=== PATIENT | male | born 1960 | race Caucasian/White ===

== ENCOUNTER → 2018-03-20 06:52 | Outpatient (CLI) | payer OTHER, SELFPAY ==
[2018-03-20 07:33] LABS: Add Manual Diff / Slide Review NO; Basophils Percent Auto 1.1 % (0-2); Eosinophils Percent Auto 2.7 % (2-4); Hematocrit 49.3 % (41-53); Hemoglobin 16.6 g/dL (13.5-17.5); Lymphocytes Percent Auto 23.5 % (25-40); Mean Corpuscular HGB Conc 33.7 % (30-36); Mean Corpuscular Hemoglobin 33.4 PG (26-34); Mean Corpuscular Volume 99.1 fL (80-100); Monocytes Percent Auto 9.4 % (3-14); Neutrophils Absolute Auto 4200 /uL (3000-5900); Neutrophils Percent Auto 63.3 % (50-75); Platelet Count 332 X10^3/uL (150-400); Red Blood Cell Count 4.98 X10^6/uL (4.5-5.9); Red Cell Distribution Width 13.9 % (11.6-14.8); White Blood Cell Count 6.7 X10^3/uL (4.5-11.0)
[2018-03-20 07:51] LABS: Alanine Aminotransferase 20 IU/L (21-72); Albumin 4.6 g/dL (3.5-5.0); Albumin Globulin Ratio 1.3 (1.0-2.8); Alkaline Phosphatase 59 U/L (38-126); Aspartate Aminotransferase 22 IU/L (17-59); BUN Creatinine Ratio 16.7 (6-22); Blood Urea Nitrogen 15 mg/dL (9-20); Calcium 9.4 mg/dL (8.4-10.2); Carbon Dioxide 26 mmol/L (22-32); Chloride 101 mmol/L (98-107); Cholesterol 257 mg/dL (140-199); Estimated Glomerular Filt Rate > 60.0 mL/min (>60); Globulin 3.5 g/dL (1.7-4.1); Glucose 101 mg/dL (70-100); HDL Cholesterol 95 mg/dL (40-60); HEMOLYSIS < 15 (0-50); LDL Cholesterol Calculated 138 mg/dL (<100); Potassium 4.1 mmol/L (3.4-5.1); Sodium 141 mmol/L (137-145); Total Protein 8.1 g/dL (6.3-8.2); Triglycerides 119 mg/dL (35-150)
[2018-03-20 09:45] LABS: TSH w/ Reflex to FT4 1.51 uIU/mL (0.47-4.68)
== END ==
PROVIDERS: PCP Internal Medicine; Visit Provider Internal Medicine
DX: I10 Essential (primary) hypertension (principal); E78.2 Mixed hyperlipidemia
CPT/HCPCS: 36415; 80053; 80061; 84443; 85025

== ENCOUNTER → 2020-07-03 08:12 | Outpatient (CLI) | payer OTHER, SELFPAY ==
[2020-07-05 09:25] LABS: COVID19 Sendout Not Detected (Not Detect)
== END ==
PROVIDERS: Family Provider Internal Medicine; PCP Internal Medicine; Visit Provider Physician Assistant
DX: Z03.818 Encounter for observation for suspected exposure to other biological agents ruled out (principal)
CPT/HCPCS: 87635

== ENCOUNTER → 2020-08-17 11:18 | Outpatient (CLI) | payer OTHER, SELFPAY ==
[2020-08-17 12:37] LABS: COVID19 -Nasal RAPID Negative (Negative)
== END ==
PROVIDERS: Family Provider Internal Medicine; PCP Internal Medicine; Visit Provider Physician Assistant
DX: Z11.59 Encounter for screening for other viral diseases (principal)
CPT/HCPCS: 87635

== ENCOUNTER 2023-02-09 11:49 | Emergency (ER) | payer OTHER, SELFPAY ==
[2023-02-09] VITALS (10 sets, daily range): BP systolic 151–187; BP diastolic 90–105; PULSE 87–102; RESP 16; O2SAT 94–97; BMI 28.0
[2023-02-09 12:52] LABS: Add Manual Diff / Slide Review NO; Basophils Absolute Auto 100 /uL (0-100); Basophils Percent Auto 0.8 % (0-2); Eosinophils Absolute Auto 0 /uL (0-450); Eosinophils Percent Auto 0.3 % (2-4); Hematocrit 45.7 % (41-53); Hemoglobin 15.7 g/dL (13.5-17.5); Lymphocytes Absolute Auto 1600 /uL (1100-4500); Lymphocytes Percent Auto 11.3 % (25-40); Mean Corpuscular HGB Conc 34.3 % (30-36); Mean Corpuscular Hemoglobin 33.2 PG (26-34); Mean Corpuscular Volume 96.5 fL (80-100); Monocytes Absolute Auto 1400 /uL (0-900); Monocytes Percent Auto 9.7 % (3-14); Neutrophils Absolute Auto 11000 /uL (1500-7000); Neutrophils Percent Auto 77.9 % (50-75); Platelet Count 414 X10^3/uL (150-400); Red Blood Cell Count 4.74 X10^6/uL (4.5-5.9); Red Cell Distribution Width 13.8 % (11.6-14.8); White Blood Cell Count 14.2 X10^3/uL (4.5-11.0)
[2023-02-09 13:05] LABS: Alanine Aminotransferase 27 IU/L (<50); Albumin 4.4 g/dL (3.5-5.0); Albumin Globulin Ratio 1.2 (1.0-2.8); Alkaline Phosphatase 76 U/L (38-126); Aspartate Aminotransferase 25 IU/L (17-59); BUN Creatinine Ratio 16.7 (6-22); Blood Urea Nitrogen 13 mg/dL (9-20); Calcium 8.8 mg/dL (8.4-10.2); Carbon Dioxide 25 mmol/L (22-32); Chloride 101 mmol/L (98-107); Estimated Glomerular Filt Rate > 60 mL/min (>60); Globulin 3.7 g/dL (1.7-4.1); Glucose 110 mg/dL (80-110); HEMOLYSIS 40 (0-50); Lipase 44 U/L (23-300); Sodium 136 mmol/L (137-145); Total Protein 8.1 g/dL (6.3-8.2)
[2023-02-09 13:44] LABS: Bacteria Urine None Seen; Mucus Urine 1+ (Negative); RBC Urine None Seen (0-5/HPF); Squamous Epithelial Cell Urine None Seen (0-5/HPF); WBC Urine 0-1/HPF (0-5/HPF)
[2023-02-09 13:45] LABS: Culture Indicated Urine Cult Not Indicated
--- NOTE | 2023-02-09 15:44 | DI.CT.S_ITS ---
PROCEDURE: CT ABDOMEN PELVIS W CON INDICATIONS: IV contrast only/Lower abdominal pain TECHNIQUE: After the administration of intravenous contrast, axial sections acquired from the lung bases to the pubic symphysis. Coronal and sagittal reformats were performed. For radiation dose reduction, the following was used: automated exposure control, adjustment of mA and/or kV according to patient size. COMPARISON: None. FINDINGS: Image quality: Excellent. Lung bases: Unremarkable. Heart: No significant findings. ABDOMEN: Liver: Hepatic cysts. Gallbladder: Unremarkable. Biliary ducts: Unremarkable. Pancreas: Unremarkable. Spleen: Unremarkable. Adrenal Glands: Unremarkable. Kidneys and Ureters: Unremarkable. Stomach and Bowel: Sigmoid colonic diverticulitis, with associated wall thickening and pericolonic fat stranding. No evidence of perforation. A few prominent lymph nodes are present. Peritoneum: No abnormal intraperitoneal fluid. No free air. Ventral Wall: No hernias. Abdominal Nodes: No retroperitoneal or mesenteric adenopathy by size criteria. Vessels: Aorta and inferior vena cava are normal in size. PELVIS: Pelvic Organs: Unremarkable. Bladder: Unremarkable. Pelvic Nodes: No enlarged lymph nodes. Miscellaneous: No hernias are seen. Bones: Grade 1 anterolisthesis L5 on S1 secondary to pars defects. IMPRESSION: Sigmoid colonic diverticulitis, without abscess or perforation. Prominent adjacent lymph nodes are present. Recommend screening colonoscopy following resolution of symptoms to exclude underlying mass (if not performed recently). Dictated by: Yusef Cee M.D. on 02/09/2023 at 16:19 Approved by: Yusef Cee M.D. on 02/09/2023 at 16:21
--- NOTE | 2023-02-09 15:45 | ED_ITS ---
HPI - Abdominal Pain General Chief Complaint: Abdominal Pain Stated Complaint: lower ABD pain T-7/hurts to use the bathroom Time Seen by Provider: 02/09/23 15:36 Source: patient Mode of arrival: Ambulatory History of Present Illness HPI narrative: Patient here for lower abdominal pain suprapubic pain. Hurts with urination but no penile pain or testicular pain. Patient does have history of childhood testicular torsion on the left with surgical repair. He states it does not feel like this. Hurts with movement. No problems with bowel movements. Previous history of colonoscopy be but no definitive history of diverticulosis or polyps or cancer. Twin brother does have history of diverticulitis. No fever chills. No back pain. No flank pain. Related Data Home Medications Medication Instructions Recorded Confirmed ASPIRIN (#ASPIRIN) 325 mg PO 2TABS QD ##0 05/19/11 09/13/18 ibuprofen 200 mg tablet (Advil) 200 mg PO PRN ##0 05/20/11 09/13/18 MULTIVITAMIN (#ATOXIMETIN-B) 1 cap PO Q DAY ##0 12/22/11 09/13/18 Previous Rx's Medication Instructions Recorded lisinopril 40 mg tablet 40 mg PO QDAY #90 tabs 03/26/18 pravastatin 40 mg tablet 40 mg PO HS #90 tabs 03/26/18 azithromycin 250 mg tablet See Rx Instructions PO .COMPLEX #8 09/13/18 tabs prednisone 20 mg tablet See Rx Instructions PO .COMPLEX #8 09/13/18 tabs ciprofloxacin HCl 500 mg tablet 500 mg PO BID #14 tabs 02/09/23 (Cipro) metronidazole 500 mg tablet 500 mg PO TID #21 tabs 02/09/23 Allergies Allergy/AdvReac Type Severity Reaction Status Date / Time meperidine [MEPERIDINE] AdvReac Intermediate Verified 02/09/23 11:57 Review of Systems Review of Systems Narrative: GENERAL: negative chills, fatigue, malaise, fever, sweats. HEENT: negative sinus pain, ear pain, sore throat RESPIRATORY: negative dyspnea, cough CARDIOVASCULAR: negative chest pain, palpitations GASTROINTESTINAL: negative nausea, vomiting, positive abdominal pain : Positive dysuria, negative frequency, hematuria MUSCULOSKELETAL: negative muscle or bony pain SKIN: negative rash, skin lesions NEUROLOGIC: negative weakness, numbness ROS Unobtainable: All systems reviewed & are unremarkable except as noted in HPI and below Patient History Medical History Asthma (1967) Chronic back pain (2009) Essential hypertension Mixed hyperlipidemia URI (upper respiratory infection) Surgical History Anesthesia History of hand surgery (03/1988) History of testicular surgery (03/1979) Social History Smoking Status: Former smoker Smoking Status: Former smoker alcohol intake frequency: 3 or more drinks per day Alcohol type: beer and hard liquor Substance Use Type: marijuana Exam Narrative Exam Narrative: GENERAL: in no distress, not toxic not dyspneic HEAD: Normocephalic. EYES: Pupils equal round ENT: Mucous membranes moist. NECK: Trachea midline. CARDIOVASCULAR: Regular rate and rhythm without murmurs RESPIRATORY: Clear to auscultation. Breath sounds equal bilaterally. No wheezes, rales, or rhonchi. GASTROINTESTINAL: Abdomen soft, reproducible suprapubic tenderness. No peritoneal signs. No McBurney point tenderness. No left lower quadrant tenderness. No pain out of proportion to exam. EXTREMITIES: No gross deformities. BACK: No flank tenderness. NEURO: AOx4. SKIN: Warm and dry PSYCH: Not anxious, is cooperative Initial Vital Signs Initial Vital Signs: Vital Signs Pulse Rate 102 H 02/09/23 11:53 Respiratory Rate 16 02/09/23 11:53 Blood Pressure 177/105 H 02/09/23 11:53 Pulse Oximetry 94 02/09/23 11:53 Oxygen Delivery Method Room Air 02/09/23 11:53 Course Orders Ordered: Discontinued Medications Ciprofloxacin (Ciprofloxacin 250 Mg Tablet) 500 mg PO NOW ONE Stop: 02/09/23 17:09 Last Admin: 02/09/23 17:19 Dose: 500 mg Documented By: RO Sodium Chloride (Normal Saline 0.9%) 1,000 mls @ 1,000 mls/hr IV BOLUS ONE Stop: 02/09/23 16:44 Last Infusion: 02/09/23 17:44 Dose: 0 mls/hr Documented By: Admin: 02/09/23 16:13 Dose: 1,000 mls/hr Documented By: RO Ketorolac Tromethamine (Ketorolac 30 Mg/Ml Vial) 15 mg IV NOW ONE Stop: 02/09/23 17:09 Last Admin: 02/09/23 17:19 Dose: 15 mg Documented By: VICKY Metronidazole (Metronidazole 500 Mg Tablet) 500 mg PO NOW ONE Stop: 02/09/23 17:09 Last Admin: 02/09/23 17:19 Dose: 500 mg Documented By: VICKY Ondansetron HCl (Ondansetron 4 Mg/2 Ml Inj) 4 mg IV NOW PRN PRN Reason: Nausea And Vomiting Vital Signs Vital signs: Vital Signs - 8 hr 02/09/23 11:53 02/09/23 14:53 02/09/23 14:53 Pulse Rate 102 H 93 H Respiratory Rate 16 16 Blood Pressure 177/105 H 187/105 H Pulse Oximetry 94 95 Oxygen Delivery Method Room Air 02/09/23 15:00 02/09/23 15:01 02/09/23 15:01 Pulse Rate 95 H 94 H Respiratory Rate Blood Pressure 151/102 H Pulse Oximetry 96 96 Oxygen Delivery Method 02/09/23 15:30 02/09/23 15:30 02/09/23 16:00 Pulse Rate 94 H 89 Respiratory Rate Blood Pressure 174/96 H Pulse Oximetry 96 96 Oxygen Delivery Method Room Air 02/09/23 16:20 02/09/23 16:20 02/09/23 16:30 Pulse Rate 92 H Respiratory Rate Blood Pressure 162/103 H 166/90 H Pulse Oximetry 97 Oxygen Delivery Method 02/09/23 16:30 Pulse Rate 89 Respiratory Rate Blood Pressure Pulse Oximetry 97 Oxygen Delivery Method Room Air MDM - Abdominal Pain Lab Data 02/09/23 12:32 02/09/23 12:32 Labs: Lab Results 02/09/23 02/09/23 02/09/23 Range/Units 12:30 12:32 12:32 WBC 14.2 H (4.5-11.0) X10^3/uL RBC 4.74 (4.5-5.9) X10^6/uL Hgb 15.7 (13.5-17.5) g/dL Hct 45.7 (41-53) % MCV 96.5 (80-100) fL MCH 33.2 (26-34) PG MCHC 34.3 (30-36) % RDW 13.8 (11.6-14.8) % Plt Count 414 H (150-400) X10^3/uL Neut % (Auto) 77.9 H (50-75) % Lymph % (Auto) 11.3 L (25-40) % [place] % (Auto) 9.7 (3-14) % Eos % (Auto) 0.3 L (2-4) % Baso % (Auto) 0.8 (0-2) % Neut # (Auto) 39663 H (6355-5548) /uL Lymph # (Auto) 1600 (6714-7195) /uL [place] # (Auto) 1400 H (0-900) /uL Eos # (Auto) 0 (0-450) /uL Baso # (Auto) 100 (0-100) /uL Sodium 136 L (137-145) mmol/L Potassium 4.0 (3.4-5.1) mmol/L Chloride 101 (98-107) mmol/L Carbon Dioxide 25 (22-32) mmol/L BUN 13 (9-20) mg/dL Creatinine 0.78 (0.66-1.25) mg/dL Estimated GFR > 60 (>60) mL/min BUN/Creatinine Ratio 16.7 (6-22) Glucose 110 (80-110) mg/dL Calcium 8.8 (8.4-10.2) mg/dL Total Bilirubin 1.0 (0.2-1.3) mg/dL AST 25 (17-59) IU/L ALT 27 (<50) IU/L Alkaline Phosphatase 76 (38-126) U/L Total Protein 8.1 (6.3-8.2) g/dL Albumin 4.4 (3.5-5.0) g/dL Globulin 3.7 (1.7-4.1) g/dL Albumin/Globulin Ratio 1.2 (1.0-2.8) Lipase 44 (23-300) U/L Urine RBC None seen (0-5/HPF) Urine WBC 0-1/hpf (0-5/HPF) Ur Squamous Epith Cells None seen (0-5/HPF) Urine Bacteria None seen (None) Urine Mucus 1+ H (Negative) Ur Culture Indicated? Cult not indicated Point of care testing: Urine Dip Bedside Urine Glucose Negative Bedside Urine Bilirubin - Negative Bedside Urine Ketone - Negative Urine Specific [place] 1.030 Bedside Urine Occult Blood +/- Bedside Urine pH 5.5 Bedside Urine Protein + 30 Bedside Urine Urobilinogen +/- 1mg Bedside Urine Nitrite - Negative Bedside Urine Leukocytes - Negative Esterase Imaging Data CT scan - abdomen/pelvis: Radiologist's Impression: IMPRESSION: Sigmoid colonic diverticulitis, without abscess or perforation. Prominent adjacent lymph nodes are present. Recommend screening colonoscopy following resolution of symptoms to exclude underlying mass (if not performed recently). MDM Narrative Medical decision making narrative: Patient here for lower abdominal pain suprapubic pain. Hurts with urination but no penile pain or testicular pain. Patient does have history of childhood testicular torsion on the left with surgical repair. He states it does not feel like this. Hurts with movement. No problems with bowel movements. Previous history of colonoscopy be but no definitive history of diverticulosis or polyps or cancer. Twin brother does have history of diverticulitis. No fever chills. No back pain. No flank pain. After history and exam CBC CMP urinalysis CT abdomen pelvis normal saline MDM CC: Suprapubic pain. Complicating co-morbidities: None Data collected from: Patient Medical records reviewed: Reviewed notes from urgent care just prior to arrival today Differential considered: Includes but not limited to diverticulitis UTI appe ndicitis colitis kidney stone Exam documented above, pertinent findings include: Suprapubic tenderness Lab Test results independently reviewed as above. Pertinent findings: WBC 14.2 hemoglobin 15.7 hematocrit 45.7 platelets 414 sodium 136 potassium 4.0 BUN 13 creatinine 0.78 GFR greater than 60 AST 25 ALT 27 urine 0-1 WBC no RBC Independently reviewed EKG as above normal sinus rhythm rate 96 right bundle- branch block no ST elevation or depression Imaging studies independently reviewed: CT abdomen pelvis sigmoid colonic diverticulitis without abscess or perforation. Prominent lymph nodes are present. Treatments: Normal saline Cipro Flagyl Toradol Re-evaluations: Updated patient results. Pain is controlled. Return precautions reviewed with him. He will need outpatient colonoscopy. He does have a primary care provider Dr. Machuca. Referral to Dr. Gomez general surg lise given. He desires discharge home. Discussion: Appropriate for discharge home and outpatient management diverticulitis. Return precautions reviewed with him. He does have primary care resources and referral for General surgery provided. Nontoxic at discharge. He desires discharge home. Antibiotics were started here. Diagnosis: Sigmoid diverticulitis Discharge Plan Departure Patient Disposition: Home Clinical Impression: Diverticulitis Instructions: DI for Diverticulitis, DI for Diverticulosis Activity Restrictions/Additional Instructions: Please see family doctor next week and please do call Dr. Gomez, general surgery office, to schedule colonoscopy. Please do not eat foods with seeds or nuts. This can trigger diverticulitis. Return if worse if any questions or concerns. Prescription antibiotics have been sent to your pharmacy to continue for 7 days. May continue ibuprofen or Tylenol for pain. Return if worse if any questions or concerns for if increased pain or if any fever. Prescriptions: New ciprofloxacin HCl [Cipro] 500 mg tablet 500 mg PO BID Qty: 14 0RF metronidazole 500 mg tablet 500 mg PO TID Qty: 21 0RF No Action ASPIRIN (#ASPIRIN) 325 mg PO 2TABS QD Qty: 0 ibuprofen [Advil] 200 MG tablet 200 mg PO PRN Qty: 0 MULTIVITAMIN (#ATOXIMETIN-B) 1 cap PO Q DAY Qty: 0 lisinopril 40 mg tablet 40 mg PO QDAY Qty: 90 3RF pravastatin 40 mg tablet 40 mg PO HS Qty: 90 3RF azithromycin 250 mg tablet See Rx Instructions PO .COMPLEX Qty: 8 0RF Dose Instruction: TAKE 2 ON DAY 1, THEN 1 DAILY FOR 6 ADDITIONAL DAYS PO Rx Instructions: TAKE 2 ON DAY 1, THEN 1 DAILY FOR 6 ADDITIONAL DAYS PO prednisone 20 mg tablet See Rx Instructions PO .COMPLEX Qty: 8 0RF Dose Instruction: 40mg (2 tabs) daily for 4 days PO ; administer with food or milk Rx Instructions: 40mg (2 tabs) daily for 4 days PO ; administer with food or milk Referrals: Amy Gomez MD [Physician] - William Machuca MD [Primary Care Provider] - Stand Alone Forms: Patient Portal/API
[2023-02-09] MEDS: SODIUM CHLORIDE 0.9% 1,000 ML 1000 ML IV (16:13)
[2023-02-09] MEDS: metroNIDAZOLE 500 MG TABLET PO (17:19)
[2023-02-09] MEDS: KETOROLAC 30 MG/ML VIAL 15 MG IV (17:19)
[2023-02-09] MEDS: CIPROFLOXACIN 250 MG TABLET 500 MG PO (17:19)
== END 2023-02-09 17:20 | disposition home or self-care (01) ==
PROVIDERS: Emergency Provider Emergency Medicine; Family Provider Internal Medicine; PCP Internal Medicine
DX: K57.92 Diverticulitis of intestine, part unspecified, without perforation or abscess without bleeding (principal); R10.9 Unspecified abdominal pain
CPT/HCPCS: 36415; 74177; 80053; 81003; 81015; 83690; 85025; 93005; 96361; 96374; 99284; J1885; Q9967

== ENCOUNTER → 2024-06-04 15:56 | Outpatient (CLI) | payer OTHER, SELFPAY ==
[2024-06-04 16:51] LABS: Alanine Aminotransferase 23 IU/L (<50); Albumin 4.8 g/dL (3.5-5.0); Albumin Globulin Ratio 1.6 (1.0-2.8); Alkaline Phosphatase 52 U/L (38-126); Aspartate Aminotransferase 32 IU/L (17-59); BUN Creatinine Ratio 21.8 (6-22); Blood Urea Nitrogen 22 mg/dL (9-20); Calcium 9.3 mg/dL (8.4-10.2); Carbon Dioxide 24 mmol/L (22-32); Chloride 104 mmol/L (98-107); Cholesterol 221 mg/dL (140-199); Estimated Glomerular Filt Rate > 60 mL/min (>60); Glucose 99 mg/dL (80-110); HDL Cholesterol 103 mg/dL (40-60); HEMOLYSIS < 15 (0-50); LDL Cholesterol Calculated 99 mg/dL (<100); Potassium 3.8 mmol/L (3.4-5.1); Sodium 139 mmol/L (137-145); Total Protein 7.8 g/dL (6.3-8.2); Triglycerides 97 mg/dL (35-150)
[2024-06-04 17:21] LABS: Prostate Specific Antigen Scrn 0.594 ng/mL (0.1-4.0)
[2024-06-04 18:34] LABS: Hemoglobin A1C% w Est Avg Glu 5.7 % (4.0-6.0)
[2024-06-05 09:52] LABS: HIV 1 & 2 Ab/Ag 4th Gen Combo NEGATIVE (NEGATIVE); Hep C Virus Ab w/Reflex Quant NEGATIVE s/c (NEGATIVE)
== END ==
PROVIDERS: Family Provider Internal Medicine; PCP Family Medicine; Referring Provider Family Medicine; Visit Provider Family Medicine
DX: Z11.59 Encounter for screening for other viral diseases (principal); Z11.4 Encounter for screening for human immunodeficiency virus [HIV]; Z12.5 Encounter for screening for malignant neoplasm of prostate; E78.2 Mixed hyperlipidemia; I10 Essential (primary) hypertension
CPT/HCPCS: 36415; 80053; 80061; 83036; 86803; 87389; G0103

== ENCOUNTER → 2025-04-03 13:58 | Outpatient (CLI) | payer OTHER, SELFPAY ==
[2025-04-03 14:34] LABS: Hemoglobin A1C% w Est Avg Glu 5.6 % (4.0-6.0)
[2025-04-03 14:45] LABS: Alanine Aminotransferase 21 IU/L (<50); Albumin 4.5 g/dL (3.5-5.0); Albumin Globulin Ratio 1.5 (1.0-2.8); Alkaline Phosphatase 46 U/L (38-126); Blood Urea Nitrogen 15 mg/dL (9-20); Calcium 9.1 mg/dL (8.4-10.2); Carbon Dioxide 21 mmol/L (22-32); Chloride 105 mmol/L (98-107); Cholesterol 241 mg/dL (140-199); Estimated Glomerular Filt Rate > 60 mL/min (>60); Globulin 3.0 g/dL (1.7-4.1); Glucose 106 mg/dL (70-99); HDL Cholesterol 85 mg/dL (40-60); Potassium 4.6 mmol/L (3.4-5.1); Sodium 135 mmol/L (137-145); Total Protein 7.5 g/dL (6.3-8.2); Triglycerides 105 mg/dL (35-150)
[2025-04-03 14:47] LABS: HEMOLYSIS 64 (0-50)
== END ==
PROVIDERS: Family Provider Internal Medicine; PCP Family Medicine; Referring Provider Family Medicine; Visit Provider Family Medicine
DX: Z00.00 Encounter for general adult medical examination without abnormal findings (principal); R73.01 Impaired fasting glucose; E78.2 Mixed hyperlipidemia
CPT/HCPCS: 36415; 80053; 80061; 83036

== ENCOUNTER 2025-07-04 07:58 | Emergency (ER) | payer OTHER, SELFPAY ==
[2025-07-04] VITALS (10 sets, daily range): BP systolic 161–203; BP diastolic 94–125; PULSE 86–100; RESP 10–20; TEMP 36.6; O2SAT 92–96; BMI 28.8
--- NOTE | 2025-07-04 08:15 | DI.CT.S_ITS ---
PROCEDURE: CT ABDOMEN PELVIS W CON INDICATIONS: peritonitis hx divertic, + murphys as well TECHNIQUE: After the administration of intravenous contrast, axial sections acquired from the lung bases to the pubic symphysis. Coronal and sagittal reformats were performed. For radiation dose reduction, the following was used: automated exposure control, adjustment of mA and/or kV according to patient size. COMPARISON: [facility], CT, CT ABDOMEN PELVIS W CON, 02/09/2023, 15:54. FINDINGS: Image quality: Diagnostic. Lower Chest: Incidental coronary artery calcifications are noted. ABDOMEN: Liver: Fatty infiltration of the liver. No mass or cirrhosis. Multiple hypoattenuating, nonenhancing cystic structures have benign features. No intrahepatic biliary dilation. Portal vein is patent. Gallbladder: No radiopaque gallstones or wall thickening. Biliary ducts: No biliary dilation. Pancreas: No ductal dilation. Spleen: Size is within normal limits. Adrenal Glands: No adrenal nodules. Kidneys and Ureters: No hydronephrosis. No solid mass. No complex renal cystic lesion which requires follow up. Stomach and Bowel: Long segment sigmoid wall thickening with pericolonic fat stranding noted. No complication such as perforation or fluid collection. Normal appearing appendix. Peritoneum: No abnormal intraperitoneal fluid. No free air. Surgical clips are noted in the left lower quadrant of the abdomen. Ventral Wall: No significant ventral hernia. Abdominal Nodes: No retroperitoneal or mesenteric adenopathy by size criteria. Vessels: Aorta and inferior vena cava are normal in size. Mild atheromatous plaques are noted in the nonaneurysmal abdominal aorta. PELVIS: Pelvic Organs: Mild prominence of the prostate gland. Seminal vesicles are mildly prominent. Bladder: No bladder wall thickening, accounting for underdistention. Pelvic Nodes: No enlarged lymph nodes. Miscellaneous: No inguinal hernias are seen. Bones: No aggressive osseous abnormality. Multilevel degenerative disc disease most pronounced at the marked L4-5 disc narrowing. Grade 1 L4 on L5 anterolisthesis due to bilateral pars defects. IMPRESSION: CT findings consistent with acute uncomplicated diverticulitis. Specifically, no evidence for a mass, perforation or abscess. Previously noted prominent pericolonic lymph nodes have resolved. If symptoms persist, recommend repeat imaging. Hepatic steatosis. Incidental liver cysts. No mass or cirrhosis. Dictated by: Janet Huang M.D. on 07/04/2025 at 10:00 Approved by: Janet Huang M.D. on 07/04/2025 at 10:09
--- NOTE | 2025-07-04 08:25 | ED_ITS ---
HPI - Abdominal Pain General Chief Complaint: Abdominal Pain Stated Complaint: Extreme stomach pain/history of diverticulitis Time Seen by Provider: 07/04/25 08:09 Source: patient Mode of arrival: Ambulatory History of Present Illness HPI narrative: 65-year-old male history of hypertension hyperlipidemia, EtOH use disorder, diverticulitis, here with diffuse abdominal discomfort since Monday. He has been having bowel movements and passing gas. He has not noted any blood in the stool. He has had poor appetite due to pain. Abdomen he says is more painful across the low portion but is present everywhere. No significant nausea or vomiting. No known fever. He has history of testicular torsion and remote surgery related to that. Reports was diagnosed with diverticulitis in the past treated with antibiotics. He had some granola on Monday with seeds and wonders if this may have set off another flare. Patient reports drink 2 beers and 2 shots of vodka daily but not since on Monday Related Data Previous Rx's ?Medication ?Instructions ?Recorded albuterol sulfate 90 mcg/actuation 1 - 2 inh inhalatio n Q4-6H PRN 07/10/24 aerosol inhaler shortness of breath or wheez ing #8.5 grams atorvastatin 40 mg tablet (Lipitor) 40 mg PO BEDTIME c holesterol #90 04/11/25 tabs losartan 25 mg tablet 25 mg PO DAILY #90 tabs 04/01 10/26 amoxicillin 875 mg-potassium 1 tab PO BID 7 days #14 t abs 07/04/25 clavulanate 125 mg tablet hydrocodone 5 mg-acetaminophen 325 1 tab PO Q8H PRN pa in #10 tabs 07/04/25 mg tablet ondansetron HCl 4 mg tablet 4 mg PO Q8H PRN nausea and 07/04/25 vomiting 4 days #10 tabs Allergies Allergy/AdvReac Type Severity Reaction Status Date / Time meperidine (MEPERIDINE) AdvReac Intermediate Verified 07/04/25 08:05 Review of Systems Review of Systems Narrative: Pertinent ROS obtained and negative except as stated in HPI Patient History Medical History IFG (impaired fasting glucose) URI (upper respiratory infection) Asthma (1967) Chronic back pain (2009) Mixed hyperlipidemia Essential hypertension Surgical History Anesthesia History of testicular surgery (03/1979) History of hand surgery (03/1988) Social History Smoking Status: Former smoker Smoking Status: Former smoker alcohol intake frequency: 3 or more drinks per day Alcohol type: beer and hard liquor Exam Initial Vital Signs Initial Vital Signs: Vital Signs Temperature 97.8 F 07/04/25 08:05 Pulse Rate 94 H 07/04/25 08:05 Respiratory Rate 20 07/04/25 08:05 Blood Pressure 203/125 H 07/04/25 08:05 Pulse Oximetry 94 07/04/25 08:05 Oxygen Delivery Method Room Air 07/04/25 08:05 Constitutional: 65-year-old male resting on the bed, diaphoretic, appears uncomfortable Head: NCAT Cardiovascular: Tachycardic, regular, no murmur or rub Pulmonary: CTA bilaterally, no respiratory distress Abdominal: Abdomen is distended, there is voluntary guarding, positive Mackey sign, maximal tenderness in the bilateral lower quadrants Extremities: No LE edema Skin: warm, diaphoretic across the forehead Neurological: Alert and oriented x3 Course Orders Ordered: Discontinued Medications Piperacillin Sod/Tazobactam (Sod 4.5 gm/ Sodium Chloride) 100 mls @ 200 mls/hr IV NOW ONE Stop: 07/04/25 08:16 Last Infusion: 07/04/25 09:47 Dose: Infused Documented By: Admin: 07/04/25 09:03 Dose: 200 mls/hr Documented By: RB Sodium Chloride (Normal Saline 0.9%) 1,000 mls @ 1,000 mls/hr IV BOLUS ONE Stop: 07/04/25 09:14 Last Infusion: 07/04/25 10:02 Dose: Infused Documented By: Admin: 07/04/25 08:44 Dose: 1,000 mls/hr Documented By: RB Lorazepam (Lorazepam 2 Mg/Ml Inj) 0 mg IV CIWAPRN PRN; Protocol PRN Reason: Alcohol Withdrawal Lorazepam (Lorazepam 1 Mg Tablet) 0 mg PO CIWAPRN PRN; Protocol PRN Reason: Alcohol Withdrawal Morphine Sulfate (Morphine 4 Mg/Ml Inj) 4 mg IV NOW ONE Stop: 07/04/25 08:29 Last Admin: 07/04/25 09:02 Dose: 4 mg Documented By: RB Morphine Sulfate (Morphine 4 Mg/Ml Inj) 4 mg IV NOW ONE Stop: 07/04/25 09:58 Last Admin: 07/04/25 10:13 Dose: 4 mg Documented By: RB Ondansetron HCl (Ondansetron 4 Mg/2 Ml Inj) 4 mg IV Q2HR PRN PRN Reason: Nausea And Vomiting Last Admin: 07/04/25 08:44 Dose: 4 mg Documented By: RB Vital Signs Vital signs: Vital Signs - 8 hr 07/04/25 08:05 07/04/25 08:24 07/04/25 08:30 Temperature 97.8 F Pulse Rate 94 H 100 H 100 H Respiratory Rate 20 Blood Pressure 203/125 H Pulse Oximetry 94 94 94 Oxygen Delivery Method Room Air 07/04/25 08:35 07/04/25 08:35 07/04/25 09:00 Temperature Pulse Rate 98 H 95 H Respiratory Rate 10 L 10 L Blood Pressure 179/113 H Pulse Oximetry 96 95 Oxygen Delivery Method 07/04/25 09:00 07/04/25 09:17 07/04/25 09:17 Temperature Pulse Rate 98 H Respiratory Rate 12 Blood Pressure 161/102 H 178/108 H Pulse Oximetry 96 Oxygen Delivery Method 07/04/25 09:30 07/04/25 09:30 07/04/25 10:00 Temperature Pulse Rate 90 Respiratory Rate 10 L Blood Pressure 175/94 H 171/96 H Pulse Oximetry 94 Oxygen Delivery Method 07/04/25 10:00 Temperature Pulse Rate 86 Respiratory Rate 12 Blood Pressure Pulse Oximetry 92 Oxygen Delivery Method MDM - Abdominal Pain Lab Data 07/04/25 08:00 07/04/25 08:00 Labs: Lab Results 07/04/25 Range/Units 08:00 WBC 13.2 H (4.5-11.0) X10^3/uL RBC 5.21 (4.5-5.9) X10^6/uL Hgb 17.5 (13.5-17.5) g/dL Hct 51.4 (41-53) % MCV 98.5 (80-100) fL MCH 33.6 (26-34) PG MCHC 34.1 (30-36) % RDW 14.3 (11.6-14.8) % Plt Count 277 (150-400) X10^3/uL Neut % (Auto) 80.4 H (50-75) % Lymph % (Auto) 11.9 L (25-40) % [place] % (Auto) 6.2 (3-14) % Eos % (Auto) 0.3 L (2-4) % Baso % (Auto) 1.2 (0-2) % Neut # (Auto) 38250 H (4772-8651) /uL Lymph # (Auto) 1600 (9590-6706) /uL [place] # (Auto) 800 (0-900) /uL Eos # (Auto) 0 (0-450) /uL Baso # (Auto) 200 H (0-100) /uL Sodium 138 (137-145) mmol/L Potassium 3.9 (3.4-5.1) mmol/L Chloride 100 (98-107) mmol/L Carbon Dioxide 25 (22-32) mmol/L BUN 12 (9-20) mg/dL Creatinine 0.82 (0.66-1.25) mg/dL Estimated GFR > 60 (>60) mL/min BUN/Creatinine Ratio 14.6 (6-22) Glucose 123 H (70-99) mg/dL Lactate 1.5 (0.7-2.1) mmol/L Calcium 9.2 (8.4-10.2) mg/dL Total Bilirubin 1.7 H (0.2-1.3) mg/dL AST 31 (17-59) IU/L ALT 29 (<50) IU/L Alkaline Phosphatase 68 (38-126) U/L Total Protein 9.2 H (6.3-8.2) g/dL Albumin 5.1 H (3.5-5.0) g/dL Globulin 4.1 (1.7-4.1) g/dL Albumin/Globulin Ratio 1.2 (1.0-2.8) Lipase 75 (23-300) U/L [facility] Narrative Medical decision making narrative: 65-year-old male with history of ETOH use disorder, hypertension hyperlipidemia, diverticulitis here with diffuse abdominal discomfort for 3 days. Here in ED patient is noted to be diaphoretic, appears uncomfortable, has signs of peritonitis, positive Mackey's sign although localizes pain maximally to bilateral lower quadrants. Discussed case general surgery at 8:15 a.m. regarding my concern for peritonitis. Agree with sent for CT of the abdomen and pelvis. Empirically I have started IV Zosyn, IV fluids, morphine, Zofran Dr. Bansal at the bedside at 10:[address] scan and sees uncomplicated diverticulitis. Recommends discharge with empiric antibiotic coverage, follow up with PCP in 7-10 days. Laboratories today show modest leukocytosis of 13,000, no anemia, normal platelets. There is neutrophil predominance, slight bilirubin elevation 1.7 with normal LFTs normal alk-phos HR has improved to 80s after pain management and fluids. Lactate is normal 1.5. Blood cultures were sent and pending. On reassessment of the patient at 10:20 a.m. he is resting in bed. He does report some improvement of his symptoms. On exam he does have some voluntary guarding, localizes pain again to the suprapubic area and across the low abdomen. He was visited by surgeon and aware of diagnosis of diverticulitis. He feels that his pain is tolerable for discharge. He is offered narcotic prescription, antibiotics, recommended PCP follow up. Return precautions discussed and provided prior to discharge After some shared decision-making between myself patient and his have decided for discharge with strict return precautions. We discussed more severe aspect of his infection with tachycardia and leukocytosis. Offered try to admit for pain management, IV antibiotics pending blood cultures. After some thought for consideration patient states that he would be more comfortable at home and will return if things are not going well Discharge Plan Departure Patient Disposition: Home Clinical Impression: Diverticulitis Instructions: DI for Diverticulitis Activity Restrictions/Additional Instructions: I am glad that you are feeling better. I have prescribed you some antibiotics and pain medication to use at home to treat your diverticulitis. As we discussed, I would like you to have a low threshold to return to the emergency department if your pain is not improving or worsening or if you are developing new symptoms like nausea and vomiting not able to keep fluids down, fever or body shakes, other symptoms that are concerning to you, as this could be sign of worsening infection or complicated diverticulitis that would warrant admission to the hospital Prescriptions: New amoxicillin-pot clavulanate 875-125 mg tablet 1 tab PO BID 7 Days Qty: 14 0RF ondansetron HCl 4 mg tablet 4 mg PO Q8H PRN (Reason: nausea and vomiting) 4 Days Qty: 10 0RF hydrocodone-acetaminophen 5-325 mg tablet 1 tab PO Q8H PRN (Reason: pain) Qty: 10 0RF No Action losartan 25 mg tablet 25 mg PO DAILY Qty: 90 3RF atorvastatin [Lipitor] 40 mg tablet 40 mg PO BEDTIME Qty: 90 3RF albuterol sulfate 90 mcg/actuation HFA aerosol inhaler 1 - 2 inh inhalation Q4-6H PRN (Reason: shortness of breath or wheezing) Qty: 8.5 11RF Referrals: Luzmaria Djeesus DO [Primary Care Provider, Family Practice] Stand Alone Forms: Patient Portal/API
[2025-07-04 08:27] LABS: Alanine Aminotransferase 29 IU/L (<50); Albumin 5.1 g/dL (3.5-5.0); Albumin Globulin Ratio 1.2 (1.0-2.8); Alkaline Phosphatase 68 U/L (38-126); Blood Urea Nitrogen 12 mg/dL (9-20); Calcium 9.2 mg/dL (8.4-10.2); Carbon Dioxide 25 mmol/L (22-32); Chloride 100 mmol/L (98-107); Estimated Glomerular Filt Rate > 60 mL/min (>60); Globulin 4.1 g/dL (1.7-4.1); Glucose 123 mg/dL (70-99); HEMOLYSIS 17 (0-50); Lipase 75 U/L (23-300); Potassium 3.9 mmol/L (3.4-5.1); Sodium 138 mmol/L (137-145); Total Protein 9.2 g/dL (6.3-8.2)
[2025-07-04 08:28] LABS: Lactate (Lactic Acid) 1.5 mmol/L (0.7-2.1)
[2025-07-04 08:29] LABS: Add Manual Diff / Slide Review NO; Hematocrit 51.4 % (41-53); Hemoglobin 17.5 g/dL (13.5-17.5); Lymphocytes Absolute Auto 1600 /uL (1100-4500); Mean Corpuscular HGB Conc 34.1 % (30-36); Mean Corpuscular Hemoglobin 33.6 PG (26-34); Mean Corpuscular Volume 98.5 fL (80-100); Platelet Count 277 X10^3/uL (150-400)
[2025-07-04] MEDS: SODIUM CHLORIDE 0.9% 1,000 ML 1000 ML IV (08:44)
[2025-07-04] MEDS: ONDANSETRON 4 MG/2 ML INJ IV (08:44)
--- NOTE | 2025-07-04 08:47 | PC.NURSE ---
Per provider order this RN provided patient Alcohol withdrawl education through up to date [employer] printout. We reviewed this education and this patient confirmed teaching through verbal feedback. Patient denies ever having a seizure. Patient educated on signs and symptoms of withdrawl and asked to inform this RN immediately if there are any changes to previous CIWA screening answers.
[2025-07-04] MEDS: MORPHINE 4 MG/ML INJ IV ×2 (09:02→10:13)
[2025-07-04] MEDS: PIPERACILLIN/TAZO 4.5 GM in SODIUM CHLORIDE 0.9% 100 ML IV (09:03)
--- NOTE | 2025-07-04 10:12 | P.CONS_ITS ---
History of Present Illness Consult details Date Patient Seen: 07/04/25 Chief complaint: Extreme stomach pain/history of diverticulitis Reason for consult: Abdominal pain Narrative: The patient is a 65-year-old gentleman who presents with about a 2 day history of suprapubic abdominal pain. He describes the pain as sharp, constant and exacerbated by movement. Patient did describe sweats and hot flashes. He denies any nausea or vomiting. He has had some small loose stools. He had an episode of diverticulitis approximately 2 years ago. Meds Home Medications and Allergies Home Medications ?Medication ?Instructions ?Recorded ?Confirmed ?Type albuterol sulfate 90 mcg/actuation 1 - 2 inh inhalatio n Q4-6H PRN 07/10/24 07/10/24 Rx aerosol inhaler shortness of breath or wheez ing #8.5 grams atorvastatin 40 mg tablet (Lipitor) 40 mg PO BEDTIME c holesterol #90 04/11/25 Rx tabs losartan 25 mg tablet 25 mg PO DAILY #90 tabs 04/01 10/26 Rx Allergies Allergy/AdvReac Type Severity Reaction Status Date / Time meperidine (MEPERIDINE) AdvReac Intermediate Verified 07/04/25 08:05 Review of Systems Review of Systems ROS: Yes All systems reviewed with the patient and are negative except as otherwise documented Exam Vital Signs (past 8 hours): - 07/04/25 08:05 07/04/25 08:24 07/04/25 08:30 Temperature 97.8 F Pulse Rate 94 H 100 H 100 H Respiratory Rate 20 Blood Pressure 203/125 H Pulse Oximetry 94 94 94 Oxygen Delivery Method Room Air 07/04/25 08:35 07/04/25 08:35 07/04/25 09:00 Temperature Pulse Rate 98 H 95 H Respiratory Rate 10 L 10 L Blood Pressure 179/113 H Pulse Oximetry 96 95 Oxygen Delivery Method 07/04/25 09:00 07/04/25 09:17 07/04/25 09:17 Temperature Pulse Rate 98 H Respiratory Rate 12 Blood Pressure 161/102 H 178/108 H Pulse Oximetry 96 Oxygen Delivery Method 07/04/25 09:30 07/04/25 09:30 07/04/25 10:00 Temperature Pulse Rate 90 Respiratory Rate 10 L Blood Pressure 175/94 H 171/96 H Pulse Oximetry 94 Oxygen Delivery Method 07/04/25 10:00 Temperature Pulse Rate 86 Respiratory Rate 12 Blood Pressure Pulse Oximetry 92 Oxygen Delivery Method Oxygen Delivery Method Room Air Narrative Exam Narrative: The patient is a well-developed gentleman who appears to be in no acute distress. He is alert and oriented Neck is supple Cardiac reveals a regular rate and rhythm Abdomen shows some mild distention and is firm with diffuse tenderness but more acute in the suprapubic region. He has voluntary guarding. Bowel sounds are hypoactive. Extremities reveal a full range of motion Objective Imaging CT scan - abdomen: My impression: I reviewed the CT scan with the radiologist which reveals multiple diverticula with inflammatory changes in the sigmoid colon in the suprapubic region. There is no free or localized perforation. There is no free air or free fluid. Labs 07/04/25 08:00 07/04/25 08:00 Labs: Laboratory Results - last 24 hr 07/04/25 08:00 WBC 13.2 H RBC 5.21 Hgb 17.5 Hct 51.4 MCV 98.5 MCH 33.6 MCHC 34.1 RDW 14.3 Plt Count 277 Neut % (Auto) 80.4 H Lymph % (Auto) 11.9 L [place] % (Auto) 6.2 Eos % (Auto) 0.3 L Baso % (Auto) 1.2 Neut # (Auto) 44797 H Lymph # (Auto) 1600 [place] # (Auto) 800 Eos # (Auto) 0 Baso # (Auto) 200 H Sodium 138 Potassium 3.9 Chloride 100 Carbon Dioxide 25 BUN 12 Creatinine 0.82 Estimated GFR > 60 BUN/Creatinine Ratio 14.6 Glucose 123 H Lactate 1.5 Calcium 9.2 Total Bilirubin 1.7 H AST 31 ALT 29 Alkaline Phosphatase 68 Total Protein 9.2 H Albumin 5.1 H Globulin 4.1 Albumin/Globulin Ratio 1.2 Lipase 75 PFSH Medical History IFG (impaired fasting glucose) URI (upper respiratory infection) Asthma (1967) Chronic back pain (2009) Mixed hyperlipidemia Essential hypertension Surgical History Anesthesia History of testicular surgery (03/1979) History of hand surgery (03/1988) Tobacco & Substance Use Smoking Status: Former smoker Assessment & Plan Assessment and plan (1) Diverticulitis: Status: Inactive Plan Patient has an uncomplicated diverticulitis. I believe would be safe to send the patient home on amoxicillin and Flagyl. I would also give him some pain medicine to manage his present pain. I explained to the patient that I recommend he see his primary care the next 7-10 days. Time-Based Coding :: [TOTAL MINUTES] spent with patient and on the chart (including review of chart, obtaining history, exam, reviewing outside data, placing orders, documenting exam and treatment plan, and counseling patient) on [DATE]. PROFEE Charge Codes Inpatient or Observation consultation: 50832
== END 2025-07-04 10:56 | disposition home or self-care (01) ==
PROVIDERS: Emergency Provider Student in an Organized Health Care Education/Training Program; Family Provider Internal Medicine; PCP Family Medicine
DX: K57.92 Diverticulitis of intestine, part unspecified, without perforation or abscess without bleeding (principal); R00.0 Tachycardia, unspecified
CPT/HCPCS: 36415; 74177; 80053; 83605; 83690; 85025; 87040; 96365; 96375; 96376; 99284; J2270; J2405; J2543; Q9967